=== PATIENT | female | born 1980 | race Caucasian/White ===

== ENCOUNTER 2019-01-31 03:17 | Inpatient (IN) | payer OTHER ==
[~2019-01-31] VITALS: Ht 172.7 cm; Wt 71.0 kg
--- NOTE | 2019-01-31 03:43 | NUR ---
PT BIB [facility] FOR C/O LOWER BACK PAIN THAT STARTED APPROX 2 WEEKS AGO. PT STATES THAT APPROX 3 WEEKS AGO SHE FELL OUT OF BED AND REPORTS THAT MIGHT BE THE CAUSE OF HER BACK PAIN. PT REPORTS 10/10 PAIN TO HER LOWER BACK. NO OBVIOUS INJURIES NOTED. PT IS A/O X4. RESP ARE E/U. NO ACUTE DISTRESS NOTED.
--- NOTE | 2019-01-31 04:43 | NUR ---
PT RESTING IN BED. PT STILL COMPLAINING OF 10/10 PAIN. PT INFORMED THAT DOCTOR WILL BE WITH HER SOON. PT VERBALIZES UNDERSTANIND. NO ACUTE DISTRESS NOTED.
[2019-01-31 06:47] LABS: BILIRUBIN TOTAL 0.4 mg/dL (0.20-1.00); CALCIUM 9.1 mg/dL (8.5-10.1); CARBON DIOXIDE 28.1 mmol/L (21-32); POTASSIUM SERUM 4.6 mmol/L (3.5-5.1); TOTAL PROTEIN, SERUM 7.9 g/dL (6.4-8.2)
[2019-01-31 06:56] LABS: BASOPHIL % 0 % (0-2); PLATELET COUNT 473 x10^3mcL (130-400); RED CELL DISTRIBUTION WIDTH 21.6 % (11.5-14.5)
[2019-01-31 06:59] LABS: rbc morphology (normal/abnorm) ABNORMAL (NORMAL)
--- NOTE | 2019-01-31 06:59 | NUR ---
REPORT RECEIVED FROM HONEY TELLO. I WILL ASSUME CARE OF PT.
--- NOTE | 2019-01-31 07:11 | NUR ---
REPORT RECEIVED FROM OMER MÉNDEZ TO ASSUME CARE OF PT.
[2019-01-31 07:15] LABS: ALBUMIN 2.6 g/dL (3.4-5.0); CREATININE SERUM 6.7 mg/dL (0.6-1.0)
[2019-01-31] MEDS ORDERED: NESINA6.25 MG PO (07:43)
[2019-01-31] MEDS ORDERED: GOOD SENSE ASPI81 M3 PO (07:44)
[2019-01-31] MEDS ORDERED: LIPITOR80 MG PO (07:44)
[2019-01-31] MEDS ORDERED: ZESTRIL40 MG PO (07:44)
[2019-01-31] MEDS ORDERED: CARVEDILOL25 M1 PO (07:45)
[2019-01-31] MEDS ORDERED: PROCARDIA XL90 MG PO (07:45)
[2019-01-31] MEDS ORDERED: FUROSEMIDE80 MG PO (07:45)
[2019-01-31] MEDS ORDERED: LEVAQUIN750 MG PO (07:46)
[2019-01-31] MEDS ORDERED: RENVELA800 M1 PO (07:46)
[2019-01-31] MEDS ORDERED: HYDROXYZINE HYD25 MG PO (07:47)
[2019-01-31] MEDS ORDERED: COLACE100 MG PO (07:47)
[2019-01-31] MEDS ORDERED: BIOTIN-D1 GM MC (07:48)
[2019-01-31] MEDS ORDERED: NEPHRO-VITE VITA1 EA PO (07:48)
[2019-01-31] MEDS ORDERED: PANTOPRAZOLE SO40 M1 PO (07:48)
--- NOTE | 2019-01-31 07:59 | NUR ---
REPORT GIVEN TO MARA PT WILL BE GOING TO ROOM 239 B
--- NOTE | 2019-01-31 08:19 | NUR ---
PATIENT ARRIVED TO THE UNIT AT THIS TIME, WILL COMPLETE ASSESSMENT AND CONTINUE TO MONITOR.
[2019-01-31 08:24] VITALS: BP 205/91
[2019-01-31 09:59] LABS: MAGNESIUM 2.3 mg/dL (1.8-2.4); PHOSPHOROUS 5.5 mg/dL (2.5-4.9)
[2019-01-31 10:02] LABS: CHOLESTEROL/HDL RATIO 2.2
[2019-01-31 10:45] LABS: T3 TOTAL 0.47 ng/mL
[2019-01-31 10:46] LABS: FREE T4 1.14 ng/dL (0.76-1.46); FREE THYROXINE INDEX 2.1 ug/dL (1.4-4.5); T4(THYROXINE) 5.7 ug/dL (4.7-13.3)
--- NOTE | 2019-01-31 11:04 | NUR ---
PATIENT FOUND TO STILL HAVE HIGH BP AFTER MORNING BP MEDICATIONS, PROVIDER AWARE AND ORDERED MEDICATION TO REDUCE BP, GIVEN AT THIS TIME, WILL RE-CHECK BP IN 30 MINUTES, THEN SEND PATIENT TO CT
--- NOTE | 2019-01-31 11:58 | NUR ---
BP RE-CHECKED AND FOUND TO BE 223/98, WILL CONTINUE TO MONITOR
--- NOTE | 2019-01-31 12:28 | NUR ---
PATIENT TAKEN DOWN TO CT AT THIS TIME VIA GURNEY.
--- NOTE | 2019-01-31 12:39 | NUR ---
I SPOKE TO DR. ACOSTA WHO ADVISED TO CALL [facility] FOR HD TODAY, HE WOULD LIKE [facility] TO CALL HIM FOR ORDERS, WILL MAKE CALL
--- NOTE | 2019-01-31 12:41 | NUR ---
I SPOKE TO [facility] AND ADVISED OF DR. DAVE ORDAZ.
--- NOTE | 2019-01-31 13:08 | NUR ---
BACK FROM CT AT THIS TIME, HD TO START AFTER SET UP.
--- NOTE | 2019-01-31 14:30 | NUR ---
PATIENT FOUND TO HAVE 02 SAT OF 85 PRIOR TO HD, STARTED ON 2 LITERS OF O2 VIA NAC, O2 SAT UP TO 87, O2 INCREASED TO 3 LITERS VIA NC, O2 SAT 91-97 AT THIS TIME, PROVIDER MADE AWARE, WILL CONTINUE TO MONITOR.
[2019-01-31 16:27] VITALS: BP 154/74
--- NOTE | 2019-01-31 18:03 | NUR ---
PATIENT TOLERATED HD TREATMENT WELL, 2L REMOVED PER HD NURSE, PATIENT BP IS LOWER NOW 154/74, STILL ON 2 LITERS O2 VIA NC FOR COMFORT, PATIENT DENIED SOB OR CHEST PAIN OR PRESSURE. PATIENT AND HER ADVISED OF CT RESULT AND PLAN TO CONSULT ID. WILL CONTINUE TO ASSESS PAIN, OXYGENATION, AND LOC.
--- NOTE | 2019-01-31 19:20 | NUR ---
REPORT GIVEN TO CABLE FERRY OPERATOR NURSE, CARE ENDORSED
--- NOTE | 2019-01-31 19:30 | NUR ---
PT RESTING IN BED AT THIS TIME. DENIES PAIN OR DISCOMFORT. BREATHING E/U ON 2L NC AT THIS TIME. PT A/O X4, CALM AND COOPERATIVE AT THIS TIME. PT R EYE REMOVED, L EYE LEGALLY BLIND. PT MS, DENIES CP, NV, DIZZINESS, OR PALPATATIONS. PALPABLE PULSES, NO EDEMA NOTED AT THIS TIME. PT TTHS HD, AV SHUNT TO L ARM. BRUIT AND THRILL PRESENT. ABD SOFT AND ROUND, DENIES PAIN TO PALPATIONS. WEAKNESS NOTED TO L SIDE. USES WHEELCHAIR AT HOME. IV TO RH, INTACT AND INFUSING. BED AT LOWEST POSITION. CALL LIGHT WITHIN REACH. WILL CONTINUE TO MONITOR.
[2019-01-31 21:02] VITALS: BP 164/82
--- NOTE | 2019-02-01 | NUR ---
PT RESTING IN BED AT THIS TIME. NO S/S OF PAIN OR DISTRESS NOTED. PT BREATHING E/U ON 2L NC. NO SIGNS OF ACUTE DISTRESS AT THIS TIME.
[2019-02-01 05:37] VITALS: BP 156/84
--- NOTE | 2019-02-01 06:37 | NUR ---
PT RESTING IN BED AT THIS TIME. DENIES PAIN OR DISCOMFORT. BREATHIGN E/U ON 2L NC. NO SIGNS OF ACUTE DISTRESS AT THIS TIME. BED AT LOWEST POSITION. CALL LIGHT WITHIN REACH. WILL CONTINUE TO MONITOR.
[2019-02-01 07:01] LABS: CALCIUM 9.4 mg/dL (8.5-10.1); CARBON DIOXIDE 26.6 mmol/L (21-32); PHOSPHOROUS 5.5 mg/dL (2.5-4.9)
--- NOTE | 2019-02-01 07:15 | NUR ---
AAO X4.C/O BACK PAIN AT 10/10 PAIN SCALE.WILL MEDICATE NEEDED.PT LEGALLY BLIND.LUNGS CLEAR.PT NON-TELE.IV TO TKO.L UPPER ARM WITH AV SHUNT WITH + BRUIT AND THRILL.PT DIALYSIS TTHS.WILL HAVE DIALYSIS TODAY REPORTED BY NOC RN.CALL LIGHT WITHIN REACH.INSTRUCTED TO CALL FOR ANY PAIN/DISCOMFORT.WILL CONTINUE TO MONITOR PT.
[2019-02-01 07:31] LABS: CREATININE SERUM 5.2 mg/dL (0.6-1.0)
[2019-02-01 07:42] LABS: PLATELET COUNT 502 x10^3mcL (130-400); RED CELL DISTRIBUTION WIDTH 22.3 % (11.5-14.5)
--- NOTE | 2019-02-01 07:47 | NUR ---
GAVE MORPHINE 2 MG ORDERED PRN FOR C/O BACK PAIN AT 10/10 PAIN SCALE.WILL CONTINUE TO MONITOR PT.
[2019-02-01 08:01] VITALS: BP 182/82
--- NOTE | 2019-02-01 08:17 | NUR ---
WENT TO RECHECK PT CLAIMS PAIN WENT DOWN TO 8/10 PAIN SCALE.
[2019-02-01 09:42] LABS: POTASSIUM SERUM 5.6 mmol/L (3.5-5.1)
--- NOTE | 2019-02-01 10:13 | NUR ---
GAVE ULTRAM ORDERED PRN FOR C/O BACK PAIN AT 10/10 PAIN SCALE.WILL CONTINUE TO MONITOR PT.
--- NOTE | 2019-02-01 10:25 | NUR ---
INFORMED ABOUT THE BLOOD CULTURE RESULT.
[2019-02-01 10:33] VITALS: BP 173/80
--- NOTE | 2019-02-01 11:13 | NUR ---
WENT TO RECHECK PAIN LEVEL CLAIMS TO FEEL A LOT BETTER.CLAIMS THAT ULTRAM WORKS BETTER THAN MORPHINE.
[2019-02-01 11:59] VITALS: BP 177/78
--- NOTE | 2019-02-01 12:00 | NUR ---
PAGE GATE ABOUT PT + MRSA OF THE NARES.
[2019-02-01 12:16] LABS: MONOCYTE 1 % (0-7); SEGMENTED NEUTROPHILS 87 % (37-75)
[2019-02-01 12:18] LABS: rbc morphology (normal/abnorm) NORMAL (NORMAL)
[2019-02-01 15:00] VITALS: Ht 172.7 cm; Wt 71.0 kg
[2019-02-01 16:35] VITALS: BP 155/70
[2019-02-01 17:03] LABS: microscopic required? YES; urine erythrocyte NEGATIVE (NEGATIVE)
[2019-02-01 17:30] LABS: AMPHETAMINE QUAL UR NONE DETECTED (See below)
--- NOTE | 2019-02-01 18:31 | NUR ---
NO SIGNIFICANT CHANGE NOTED.WILL ENDORSE TO NEXT SHIFT
--- NOTE | 2019-02-01 19:30 | NUR ---
PT RESTING IN BED AT THIS TIME. DENIES PAIN OR DISCOMFORT. BREATHING E/U ON 2L NC. A/O X4, CALM AND COOPERATIVE AT THIS TIME. PT MED/SURG, DENIES CP, NV, DIZZINESS, AND PALPATATIONS. PALPABLE PULSES, NO EDEMA NOTED AT THIS TIME. JASON SHUNT, BRUIT AND THRILL PALPABLE. ABD SOFT AND ROUND, DENIES PAIN TO PALPATION. GENERALIZED WEAKNESS, USES WHEELCHAIR AT HOME. IV TO RH, INTACT AND INFUSING. BED AT LOWEST POSITON. CALL LIGHT WITHIN REACH. WILL CONTINUE TO MONITOR.
--- NOTE | 2019-02-01 20:15 | NUR ---
PT RECIEVING HD AT THIS TIME. CALLED PHARMACY TO RESCHEDULE ANTIBIOTICS. PHARMACY STATED TO CALL AFTER HD IS COMPLETE.
[2019-02-01 21:10] VITALS: BP 133/69
[2019-02-02 05:14] VITALS: BP 167/78
[2019-02-02 06:37] VITALS: BP 155/70
[2019-02-02 06:44] LABS: CALCIUM 8.9 mg/dL (8.5-10.1); CARBON DIOXIDE 26.2 mmol/L (21-32); PHOSPHOROUS 4.4 mg/dL (2.5-4.9); POTASSIUM SERUM 4.9 mmol/L (3.5-5.1)
--- NOTE | 2019-02-02 06:45 | NUR ---
PT RESTING IN BED AT THIS TIME. DENIES PAIN OR DISCOMFRT. PT BP RECHECKED, 155/70 AT THIS TIME. PT RESTING COMFORTABLY IN BED. ALL NEEDS AND CONCERNS ADDRESSED THIS SHIFT. WILL ENDORSE TO DAY NURSE.
[2019-02-02 06:58] LABS: PLATELET COUNT 468 x10^3mcL (130-400); RED CELL DISTRIBUTION WIDTH 22.5 % (11.5-14.5)
[2019-02-02 06:59] LABS: BASOPHIL % 0 % (0-2)
[2019-02-02 07:01] LABS: CREATININE SERUM 5.6 mg/dL (0.6-1.0)
--- NOTE | 2019-02-02 07:10 | NUR ---
RECEIVED PT FROM NIGHT NURSE. PT IS LAYING DOWN IN BED WITH HOB RESTING WITH EYES CLOSED. PT LOOKS TO BE IN NO ACUTE DISTRESS AT THIS TIME. IV SITE PATENT WITH NO SIGNS OF ERYTHEMA OR SWELLING. RESPIRATIONS EVEN AND UNLABORED ON 2L NC. JASON FISTULA PRESENT. FAMILY MEMBER AT BEDSIDE. CONTACT PRECAUTIONS IMPLEMENTED. CALL LIGHT WITHIN REACH, BED IN LOWEST POSITION, WILL CONTINUE TO MONITOR.
[2019-02-02 08:58] VITALS: BP 175/83
[2019-02-02 09:48] LABS: rbc morphology (normal/abnorm) ABNORMAL (NORMAL)
[2019-02-02 12:11] VITALS: BP 176/76
--- NOTE | 2019-02-02 13:30 | NUR ---
WASTE WATER WORKER ANTONELLA AWARE OF HIGH BLOOD PRESSURE
--- NOTE | 2019-02-02 14:15 | NUR ---
PT IS LAYING DOWN IN BED WITH HOB UP RESTING. PT LOOKS TO BE IN NO ACUTE DISTRESS AT THIS TIME AND DENIES ANY PAIN. RESPIRATIONS EVEN AND UNLABORED ON ROOM AIR. IV SITE PATENT WITH NO SIGNS OF ERYTHEMA OR SWELLING WITH IV FLUIDS INFUSING. FAMILY MEMBER AT BEDSIDE. WILL CONITNUE TO MONITOR.
[2019-02-02 17:21] VITALS: BP 147/73
[2019-02-02] MEDS ORDERED: PLA75 PO (17:53)
--- NOTE | 2019-02-02 18:29 | NUR ---
PT IS LAYING DOWN IN BED WITH HOB UP. PT LOOKS TO BE IN NO ACUTE DISTRESS AT THIS TIME AND DENIES ANY PAIN. RESPIRATIONS EVEN AND UNLABORED ON ROOM AIR. IV SITE PATENT WITH NO SIGNS OF ERYTHEMA OR SWELLING WITH IV FLUIDS INFUSING. LEFT ARM FISTULA PRESENT BRUIT AND THRILL PRESENT. CALL LIGHT WITHIN REACH, BED IN LOWEST POSITION, WILL ENDORSE TO ONCOMING SHIFT.
[2019-02-02] MEDS ORDERED: SYNTHROID0.075 MG PO (19:20)
--- NOTE | 2019-02-02 19:36 | NUR ---
PATIENT EYEDROPS RELAYED TO AND DR NIÑO TO ORDER,AND ALSO PALVIX AND THYROID MEDS TO CONTINUE.WILL BRING EYEDROPS TO PHARMACY TO VERIFY.
--- NOTE | 2019-02-02 20:06 | NUR ---
SHIFT REASSESSMENT DONE.PATIENT ALERT AND OREINTED.FAMILY AT BEDSIDE,SUPPORTIVE OF CARE.STAYS AT NIGHT.PATIENT ON MRSA NARES TX.BREATHING EASY.WEAKNESS,GEN WEAKNESS,BACK PAIN.KPAD INPLACE.LUE AV FISTULA,HD ACCESS.HD IN AM.PAIN PILL WILL GIVE SCHEDULE.LIDOCAINE PATCH REPORTED.CALL LIGHT IN REACH.
[2019-02-02 20:34] VITALS: BP 117/64
--- NOTE | 2019-02-02 22:00 | NUR ---
PATIENT PM MEDS GIVEN,BLOOD SUGAR TONIGHT NORMAL.PARTNER AT BEDSIDE.
--- NOTE | 2019-02-03 02:27 | NUR ---
CAME BACK,IN GOOD SPIRIT.PATIENT WANTED SNACK AND GIVEN.FEATHER CUTTING MACHINE FEEDER HELPED HER TO BEDPAN,VOIDED,VERY SCANTY YELLOE URINE.HD IN AM.
--- NOTE | 2019-02-03 03:38 | NUR ---
AND PATIENT SAYS SHE PULLED IV BY ACCIDENT.WILL RESTART.
--- NOTE | 2019-02-03 04:15 | NUR ---
NEW IV SITE R WRIST 20 GUAGE WITH GOOD BLOOD RETURN.IVF TKO RESUMED.
--- NOTE | 2019-02-03 06:08 | NUR ---
AM LAB DONE.BLOOD SUGAR 76.ALL AM MEDS GIVEN WITH APPLE JUICE,SWALLOWS WELL.PATIENT IV SITE SECURED. AT BEDSIDE.CONTENT WITH CARE IS RECEIVING,CONTACT ISOLATION MAINTAINED.HD TODAY.
--- NOTE | 2019-02-03 07:15 | NUR ---
RECEIVED PT FROM NIGHT NURSE. PT IS LAYING DOWN IN BED RESTING WITH EYES CLOSED. PT LOOKS TO BE IN NO ACUTE DISTRESS AND DENIES ANY PAIN AT THIS TIME. RESPIRATIONS EVEN AND UNLABORED ON 2L NC. IV SITE PATENT WITH NO SIGNS OF ERYTHEMA OR SWELLING WITH IV FLUIDS INFUSING. FISTULA PRESENT TO LEFT FOREARM, BRUIT AND THRILL PRESENT, RESTRICTED EXTREMITY BAND PERSENT. CONTACT PRECAUTIONS IMPLEMENTED. CALL LIGHT WITHIN REACH, BED IN LOWEST POSITION, FAMILY MEMBER AT BEDSIDE. WILL CONTINUE TO MONITOR.
[2019-02-03 08:13] VITALS: BP 155/74
--- NOTE | 2019-02-03 10:15 | NUR ---
GAVE PT HIBICLENS BED BATH. PROVIDED PT WITH NEW GOWN. MADE PT COMFORTABLE IN BED. CALL LIGHT WITHIN REACH, FAMILY MEMBER AT BEDSIDE. WILL CONTINUE TO MONITOR.
[2019-02-03 10:47] LABS: BASOPHIL % 0 % (0-2); PLATELET COUNT 406 x10^3mcL (130-400)
[2019-02-03 11:06] LABS: CALCIUM 8.7 mg/dL (8.5-10.1); POTASSIUM SERUM 5.2 mmol/L (3.5-5.1)
[2019-02-03 11:08] LABS: CREATININE SERUM 7.3 mg/dL (0.6-1.0)
[2019-02-03 12:04] VITALS: BP 158/80
--- NOTE | 2019-02-03 13:42 | NUR ---
DIALYSIS NURSE ARRIVED AND IS AT BEDSIDE. PT LOOKS TO BE IN NO ACUTE DISTRESS AT THIS TIME. FAMILY MEMBER AT BEDSIDE. WILL CONTINUE TO MONITOR.
[2019-02-03 16:42] VITALS: BP 142/43
--- NOTE | 2019-02-03 16:46 | NUR ---
RECEIVED CALL FROM LAB, PT'S BLOOD CULTURE POSITIVE FOR MRSA. BUTTONHOLER IBAN AWARE
--- NOTE | 2019-02-03 17:20 | NUR ---
DIALYSIS COMPLETE. PT LOOKS TO BE IN NO ACUTE DSITRESS AT THIS TIME. PT IS LAYING DOWN IN BED RESTING. WILL CONTINUE TO MONITOR.
--- NOTE | 2019-02-03 17:40 | NUR ---
ATTEMPTED TO ASSIST PT TO EAT, SET UP DINNER TRAY. PT STATES THAT DOES NOT WANT TO EAT AT THIS TIME AND WOULD LIKE TO WAIT FOR FAMILY MEMBER. MADE PT COMFORTABLE IN BED. WILL CONTINUE TO MONITOR.
--- NOTE | 2019-02-03 18:15 | NUR ---
PT IS LAYING DOWN IN BED WITH HOB UP RESTING. PT LOOKS TO BE IN NO ACUTE DISTRESS AT THIS TIME AND STATES PAIN TOLERABLE AT THIS TIME. IV SITE PATENT WITH NO SIGNS OF ERYTHEMA OR SWELLING WITH IV FLUIDS INFUSING. RESPIRATIONS EVEN AND UNLABORED ON 2L NC. FISTULA PRESENT TO LEFT FOREARM NO SIGNS OF BLEEDING, BRUIT AND THRILL PRESENT. CALL LIGHT WITHIN REACH, BED IN LOWEST POSITION. WILL ENDORSE TO ONCOMING SHIFT.
--- NOTE | 2019-02-03 19:05 | NUR ---
CARE ASSUMED FROM OUTGOING RN. PT RESTING COMFORTABLY IN BED. NO ACUTE DISTRESS NOTED. EVEN AND UNLABORED RESPIRATIONS ON RA. MEDSURG PT. IVL INTACT. FISTULA TO LFA FISTULA, BRUIT AND THRILL PRESENT, HD TODAY WITH 2L OUTPUT. DRESSING CDI. KPAD IN PLACE TO PT BACK, C/O BACK PAIN 8/10 AND ABD CRAMPING 5/10, WILL MEDICATE PER EMAR. CONTACT ISOLATION IN PLACE. BED IN LOWEST POSITION. SIDE RAILS UPX2. CALL LIGHT WITHIN REACH. WILL CONTINUE TO MONITOR.
[2019-02-03 21:31] VITALS: BP 160/72
--- NOTE | 2019-02-04 00:30 | NUR ---
PT RESTING COMFORTABLY IN BED. FAMILY AT BEDSIDE. NO ACUTE DISTRESS NOTED. EVEN AND UNLABORED RESPIRATIONS ON 2LNC. NO C/O SOB. IVL INTACT. CONTACT PRECAUTION IN PLACE. BED IN LOWEST POSITION. SIDE RAILS UPX2. CALL LIGHT WITHIN REACH. WILL CONTINUE TO MONITOR.
[2019-02-04 04:29] VITALS: BP 165/77
--- NOTE | 2019-02-04 06:16 | NUR ---
PT SLEPT IN INTERVALS THROUGHOUT THE SHIFT. FAMILY AT BEDSIDE. ALL NEEDS TENDED TO AND MET. ALL SCHEDULED MEDICATIONS GIVEN. C/O CONSTIPATION MEDICATED PER EMAR, ABLE TO HAVE FORMED BM THIS AM. C/O BACK PAIN MEDICATED PER EMAR, KPAD IN PLACE. EVEN AND UNLABORED RESPIRATIONS ON RA/2LNC PRN. IVL PATENT AND INTACT. LFA FISTULA INTACT, DRESSING CDI. BED IN LOWEST POSITION. CONTACT ISOLATIN IN PLACE. SIDE RAILS UPX2. CALL LIGHT WITHIN REACH. WILL ENDORSE TO ONCOMING SHIFT.
--- NOTE | 2019-02-04 06:42 | NUR ---
BP: 165/77 RECHECKED: 178/87. MEDICATED PER EMAR. NO C/O HEADACHE OR PAIN AT THIS TIME. WILL ENDORSET ONCOMING SHIFT.
[2019-02-04 06:46] LABS: PLATELET COUNT 392 x10^3mcL (130-400)
[2019-02-04 06:47] LABS: CALCIUM 9.2 mg/dL (8.5-10.1); CARBON DIOXIDE 25.8 mmol/L (21-32); POTASSIUM SERUM 4.4 mmol/L (3.5-5.1)
[2019-02-04 06:51] LABS: CREATININE SERUM 6.2 mg/dL (0.6-1.0)
--- NOTE | 2019-02-04 07:15 | NUR ---
RECIEVED PT FROM NIGHT NURSE. PT IS LAYING DOWN IN BED WITH HOB UP RESTING. PT LOOKS TO BE IN NO ACUTE DISTRESS AND STATES PAIN IS TOLERABLE AT THIS TIME. RESPIRATIONS EVEN AND UNLABORED ON ROOM AIR. PT DENIES ANY SOB AND NC AT BEDSIDE, PT STATES THAT WHEN FEELING SOB, PT WILL PUT ON NC NEEDED. FISTULA TO LEFT FOREARM, BRUIT AND THRILL PRESENT. IV SITE PATENT WITH NO SIGNS OF ERYTHEMA OR SWELLING. FAMILY MEMBER AT BEDISDE. CALL LIGHT WITHIN REACH. WILL CONTINUE TO MONITOR.
[2019-02-04 07:30] LABS: BASOPHIL % 0 % (0-2); RED CELL DISTRIBUTION WIDTH 22.8 % (11.5-14.5)
[2019-02-04 08:57] VITALS: BP 186/85
--- NOTE | 2019-02-04 12:45 | NUR ---
RECHECKED PT BLOOD SUGAR AND IS 75. PT LAYING DOWN IN BED. INSTRUCTED PT TO EAT TO PREVENT BLOOD SUGAR DECREASING. PT STATED THAT DIDNT EAT BREAKFAST THIS MORNING BECAUSE FEELING TIRED. PT NOW EATING LUNCH AT THIS TIME. PT LOOKS TO BE IN NO ACUTE DISTRESS AT THIS TIME. CALL LIGHT WITHIN REACH. WILL CONTINUE TO MONITOR.
[2019-02-04 12:47] VITALS: BP 176/78
--- NOTE | 2019-02-04 13:09 | NUR ---
PT COMPLAINING OF PAIN 11/16, BLOOD PRESSURE HIGH AT THIS TIME. MEDICATED FOR PAIN AND WILL RECHECK BLOOD PRESSURE
--- NOTE | 2019-02-04 13:55 | NUR ---
RECHECKED PT BLOOD PRESSURE AFTER PAIN MEDICATION GIVEN AND IS 164/78, WILL MEDICATE ACCORDING TO EMAR.
[2019-02-04 15:05] VITALS: BP 169/80
--- NOTE | 2019-02-04 15:05 | NUR ---
RECEIVED PT BLOOD PRESSURE AFTER GIVEN PRN BLOOD PRESSURE MEDICATION. BLOOD PRESSURE AT THIS TIME IS 169/80, MAP: 136, HR: 63. NOTIFIED ELECTRODE TURNER AND FINISHER ANTONELLA TO ORDERED ONE TIME DOSE OF MORPHINE 2MG IVP, WILL CARRY OUT ORDERED.
[2019-02-04 16:02] VITALS: BP 162/85
--- NOTE | 2019-02-04 18:53 | NUR ---
PT IS LAYING DOWN IN BED WITH HOB UP RESTING. PT LOOKS TO BE IN NO ACUTE DISTRESS AT THIS TIME AND DENIES ANY PAIN. RESPIRATIONS EVEN AND UNALBORED ON 2L NC. IV SITE PATENT WITH NO SIGNS OF ERYTHEMA OR SWELLING. FISTULA TO LEFT FOREARM, BRUIT AND THRILL PRESENT. FAMILY MEMBER AT BEDSIDE. CALL LIGHT WITHIN REACH, WILL ENDORSE TO ONCOMING SHIFT.
--- NOTE | 2019-02-04 19:20 | NUR ---
RECEIVED REPORT FROM MAYUR MÉNDEZ. PT IS AAOX4 AND DENIES HEADACHE OR DIZZINESS AT THIS TIME. PT RIGHT EYE REMOVED AND LEFT EYE IS BLIND. PT IS MED-SURG AND DENIES CHEST PAIN OR PRESSURE AT THIS TIME. PT PULSES PALPABLE AND CAP REFILL <3 SEC. PT LUNG SOUNDS CTA ON RA/2LPM NC. PT DENIES SOB OR RESPIRATORY DISTRESS AT THIS TIME. PT ABD SOFT AND NONDISTENDED. PT BOWEL SOUNDS ACTIVE X4. PT DENIES N/V/D AT THIS TIME. PT VOIDS AND IS OLIGURIC. PT HAS HD //. LAST HD 02/03 OUTPUT WAS 2L. PT HAS GENERALIZED WEAKNESS ON THE LEFT SIDE. PT IV PATENT, INTACT, AND SALINE-LOCKED AT THIS TIME. AT BEDSIDE. CALL LIGHT WITHIN REACH. BED IN LOWEST POSITION. SIDE RAILS X2 UP. WILL CONTINUE TO MONITOR.
[2019-02-04 20:54] VITALS: BP 114/72
--- NOTE | 2019-02-05 00:03 | NUR ---
PT SLEEPING, BUT EASILY AROUSABLE. PER APR, ADMINISTERED SCHEDULED PERCOCET FOR BACK PAIN. REPOSITIONED PT IN BED TO LAY ON RIGHT SIDE. CALL LIGHT WITHIN REACH. BED IN LOWEST POSITION. SIDE RAILS X2 UP. WILL CONTINUE TO MONITOR.
--- NOTE | 2019-02-05 06:11 | NUR ---
PT SLEPT FOR MOST OF THE NIGHT. NO ACUTE DISTRESS NOTED DURING THE SHIFT. PT COMPLIED WITH NURSING CARE THROUGHOUT THE SHIFT. COMFORT AND SAFETY MEASURES MAINTAINED. ALL QUESTIONS AND CONCERNS ADDRESSED. WILL ENDORSE CARE TO DAY SHIFT NURSE. WILL CONTINUE TO MONITOR.
--- NOTE | 2019-02-05 07:19 | NUR ---
ENDORSED CARE TO SUNSHINE MÉNDEZ. ALL QUESTIONS AND CONCERNS ADDRESSED.
[2019-02-05 08:08] LABS: CALCIUM 9.5 mg/dL (8.5-10.1); CARBON DIOXIDE 24.1 mmol/L (21-32); POTASSIUM SERUM 4.8 mmol/L (3.5-5.1)
[2019-02-05 08:11] VITALS: BP 119/59
[2019-02-05 08:12] LABS: CREATININE SERUM 7.6 mg/dL (0.6-1.0)
[2019-02-05 08:50] LABS: PLATELET COUNT 372 x10^3mcL (130-400); RED CELL DISTRIBUTION WIDTH 21.9 % (11.5-14.5)
[2019-02-05 08:51] LABS: BASOPHIL % 0.1 % (0-2)
--- NOTE | 2019-02-05 10:12 | NUR ---
AT 0720 - RECEIVED PATIENT FROM NIGHT NURSE. SLEEPING. RESPIRATIONS REGULAR. PT'S AT BEDSIDE. ON CONTACT ISOLATION FOR MRSA NARES. AT 0930 - PATIENT IS AWAKE, ALERT AND ORIENTED X 4. HAS EATEN BREAKFAST. NO COMPLAINTS AT THIS TIME. ALL SCHEDULED MEDS ADMINSITERED PRESCRIBED.
--- NOTE | 2019-02-05 15:47 | NUR ---
AT 1200 - PATIENT GIVEN CHLORHEXIDINE BODY BATH. BLOOD GLUCOSE 118. APPEARS COMFORTABLE AT THIS TIME. AT 1325 - PATIENT C/O INDIGESTION. CONTACTED FAMILY PRACTICE PHYSICIAN KHURRAM. AWAITING ORDER INPUT. AT 1420 - MEDICATED WITH IV PROTONIX PER EMAR.
[2019-02-05 17:59] VITALS: BP 120/60
--- NOTE | 2019-02-05 19:03 | NUR ---
VSS/ AFEBRILE. PAIN APPEARS UNDER CONTROL WITH CURRENT MEDICATIONS: SCHEDULED PERCOCET, FLEXERIL AND LIDOCAINE PATCH. NO ADDITIONAL PAIN MED REQUIRED THIS SHIFT. PATIENT WAS ABLE TO EAT OME FOOD FOR DINNER. REMAINS AT BEDSIDE AND ASSISTS WITH CARE. WILL ENDORSE CARE TO NIGHT NURSE.
--- NOTE | 2019-02-05 20:00 | NUR ---
RECEIVED PT IN BED DROWSY BUT EASILY AROUSABLE. PT IS ORIENTED X4. AT BEDSIDE. PT IS LEGALLY BLIND TO LEFT EYE, RIGHT EYE REMOVED. NO TELE MONITOR NEEDED. DENIES CHEST PAIN. LUNG SOUNDS CLEAR. BREATHING EASILY ON 2L O2 N/C. BS ACTIVE IN ALL FOUR QUADS. NO ABD PAIN NOTED. OLIGURIC, PT SCHEDULED TO HAVE HD TOMORROW. LUE WITH FISTULA +BRUIT/THRILL. GENERALIZED WEAKNESS NOTED. IV HL TO RIGHT HAND. SHIFT ASSESSMENT COMPLETED. PT IS IN CONTACT ISOLATION FOR MRSA NARES, DAY 4 OF 5 TREATMENT ONGOING. ISOLATION PRECAUTIONS ENFORCED. CALL LIGHT WITHIN REACH. BED IS IN LOWEST POSITION. WILL CONTINUE TO MONITOR CLOSELY.
--- NOTE | 2019-02-05 21:00 | NUR ---
FSBS IS 117. SANDWICH AND SNACK GIVEN AT THIS TIME. ALL NEEDS TENDED TO. WILL CONTINUE TO MONITOR CLOSELY.
[2019-02-05 21:43] VITALS: BP 115/61
--- NOTE | 2019-02-05 22:15 | NUR ---
PT RESTING IN BED IN NO DISTRESS. AT BEDSIDE. CALL LIGHT WITHIN REACH. WILL CONTINUE TO MONITOR CLOSELY.
--- NOTE | 2019-02-06 03:45 | NUR ---
CLEANED AND CHANGED PT AT THIS TIME, BACK HAS RED RASH WITH SMALL RAISED BUMPS WHICH WAS THERE AT START OF SHIFT FROM PREVIOUS SHIFT, HOWEVER PT STATES IT IS ITCHY NOW. DR NOTIFIED AND ORDERED BENADRYL PO, GIVEN AT THIS TIME. PT C/O ACID REFLUX, PROTONIX X1 IVP GIVEN ORDERED. IV LEAKING, REMOVED AT THIS TIME AND PLACED A NEW IV TO RFA. ALL NEEDS TENDED TO. WILL CONTINUE TO MONITOR CLOSELY.
[2019-02-06 05:50] VITALS: BP 134/64
--- NOTE | 2019-02-06 06:12 | NUR ---
FSBS IS 89. ALL DUE MEDS GIVEN ORDERED. AT BEDSIDE. CALL LIGHT WITHIN REACH. BED IS IN LOWEST POSITION. WILL CONTINUE TO MONITOR CLOSELY.
[2019-02-06 06:22] LABS: BASOPHIL % 0.2 % (0-2); PLATELET COUNT 379 x10^3mcL (130-400)
[2019-02-06 06:50] LABS: CALCIUM 9.1 mg/dL (8.5-10.1); CARBON DIOXIDE 24.4 mmol/L (21-32); POTASSIUM SERUM 5.1 mmol/L (3.5-5.1)
[2019-02-06 07:02] LABS: CREATININE SERUM 8.5 mg/dL (0.6-1.0)
[2019-02-06 07:15] LABS: RED CELL DISTRIBUTION WIDTH 22.2 % (11.5-14.5)
--- NOTE | 2019-02-06 07:30 | NUR ---
PATIENT IS A&OX4, LEGALLY BLIND, FOLLOWS COMMANDS AND COOPERATES WELL. LUNG SOUNDS ARE CTA BILATERALLY, ON RA, O2 SAT 97%. DENIES ANY CHEST PAIN AT THIS TIME. DENIES ANY PAIN. NORMAOCTIVE BSX4, AV FISTULA WITH BRUIT AND THRILL PRESENT, PLAN FOR HD TODAY. WILL CONTINUE TO MONITOR.
[2019-02-06 07:59] LABS: ovalocyte/elliptocyte 1+; rbc morphology (normal/abnorm) ABNORMAL (NORMAL)
[2019-02-06 08:14] VITALS: BP 139/75
--- NOTE | 2019-02-06 13:45 | NUR ---
PATIENT HAS FINISHED HEMODIALYSIS. BP WAS STABLE. PATIENT DENIED ANY DISCOMFORT OR PAIN AT THIS TIME. PATIENT ONLY STATED HEARTBURN FROM EATING, WHICH WAS MANAGED WITH WATER AND DIET SPRITE. 3L OUTPUT FROM HD. WILL CONTINUE TO MONITOR.
[2019-02-06 16:48] VITALS: BP 141/72
--- NOTE | 2019-02-06 18:46 | NUR ---
PATIENT IS CURRENTLY RESTING WITH PRESENT. PATIENT DENIES ANY PAIN, ONLY ITCHING. WILL GIVE BENADRYL. ALL QUESTIONS AND CONCERNS HAVE BEEN ADDRESSED. WILL CONTINUE TO MONITOR.
--- NOTE | 2019-02-06 19:30 | NUR ---
PT RECIEVED FROM DAY NURSE. PT RESTING IN BED AT THIS TIME. DENIES PAIN OR DISCOMFORT. A/OX4, PT BLIND IN THE L EYE R EYE REMOVED. PT MED/SURG, DENIES CP, NV, DIZZINESS, AND PALPATATIONS. PALPABLE PULSES, NO EDEMA NOTED AT THIS TIME. BREATHING E/U ON RA AT THIS TIME. ABD SOFT AND ROUND, DENIES PAIN TO PALPATION. HD PT, //SAT. JASON SHUNT. IV TO RFA, INTACT AT THIS TIME. SMALL RED BUMPS NOTED TO UPPER BODY AND BACK, MD AWARE. BED AT LOWEST POSITION. CALL LIGHT WITHIN REACH. WILL CONTINUE TO MONITOR.
[2019-02-06 21:03] VITALS: BP 132/69
--- NOTE | 2019-02-07 | NUR ---
PT RESTING IN BED AT THIS TIME. DENIES PAIN OR DISCOMFORT. BREATHING E/U ON RA. NO SIGNS OF ACUTE DISTRESS AT THIS TIME. BED AT LOWEST POSITION. CALL LIGHT WITHIN REACH. WILL CONTINUE TO MONITOR.
[2019-02-07 05:44] VITALS: BP 175/68
--- NOTE | 2019-02-07 06:37 | NUR ---
PT RESTING IN BD AT THIS TIME. REFUSING IV ACCESS. PT BP 175/68, PRN CLONODINE GIVEN. PT DENIES PAIN OR DISCOMFORT. NO SIGNS OF ACUTE DISTRESS NOTED AT THIS TIME. WILL ENDORSE TO DAY NURSE.
--- NOTE | 2019-02-07 06:52 | NUR ---
PT BP NOW 155/68. WILL ENDORSE.
--- NOTE | 2019-02-07 07:10 | NUR ---
RECEIVED PATIENT AWAKE/ALERT IN BED, NO DISTRESS NOTED, NO IV SITE REFUSED. FAMILY MEMBER AT BEDSIDE. POC DISCUSS. PATIENT WANT TO GO HOME TODAY, INFORM PATIENT WILL WAITING FOR DOCTOR DURING ROUND TO FIND OUT.
--- NOTE | 2019-02-07 08:30 | NUR ---
YARELIS GARCIA SEEN PATIENT AND DISCUSS POC, RESIN SHAVER TOLD PATIENT WILL WAIT FOR DR. DEVRIES CLEARANCE FOR D/C.
[2019-02-07 08:39] VITALS: BP 177/82
--- NOTE | 2019-02-07 11:20 | NUR ---
PATIENT IN BED AWAKE/ALERT IN BED NO COMPLAIN. ALL DUE MEDS ADMINISTERED PATIENT TOLERATED WELL. REFUSED LIDOCAINE PATCH STATED CAUSE RASHES, NEED MET. FAMILY MEMBER REMAIN AT BEDSIDE.
--- NOTE | 2019-02-07 11:30 | NUR ---
GAVE REPORT TO JOSE MÉNDEZ.
--- NOTE | 2019-02-07 12:41 | NUR ---
PT SITTING UP IN BED A/A. BREATHING EQUAL/UNLABORED ON RA. C/O BACK PAIN, PAIN MED GIVEN. NO IV ACCESS, PT REFUSED. BE IN LOW POSITION, CALL LIGHT IN REACH, SAFETY PRECAUTIONS IN PLACE, FAMILY AT BED SIDE. WILL CONTINUE TO MONITOR
[2019-02-07 13:36] VITALS: BP 140/69
[2019-02-07] MEDS ORDERED: PERCOCET1 TAB PO (13:59)
--- NOTE | 2019-02-07 14:59 | NUR ---
PT DC'D HOME. PT A/A, ORIENTED X 4, BREATHING EQUAL/UNLABORED, C/O MILD BACK PAIN. PT HAD NO IV ACCESS. DISCHARGE INSTRUCTIONS/ EDUCATION, F/U APPT, DIALYSIS APPTS, AND NEW RX DISCUSSED WITH PT AND FRIEND, BOTH VERBALIZED UNDERSTANDING. PT BROUGHT DOWN TO LOBBY VIA W/C, ACCOMPANIED BY RN AND FRIEND. ALL BELONGINGS WITH PT
== END 2019-02-07 15:00 | disposition home or self-care (01) | DRG 344 ==
LOC: ED 03:17 → MU 07:41 → EDBEDREQ 07:43 → MU 08:11
PROVIDERS: Emergency Medicine; ADMIT General Practice
PROC: 5A1D70Z Performance of Urinary Filtration, Intermittent, Less than 6 Hours Per Day (ICD-10-PCS; principal; 2019-01-31)
PROC: 5A1D70Z Performance of Urinary Filtration, Intermittent, Less than 6 Hours Per Day (ICD-10-PCS; 2019-02-01)
PROC: 5A1D70Z Performance of Urinary Filtration, Intermittent, Less than 6 Hours Per Day (ICD-10-PCS; 2019-02-03)
PROC: 5A1D70Z Performance of Urinary Filtration, Intermittent, Less than 6 Hours Per Day (ICD-10-PCS; 2019-02-06)
DX: M46.25 Osteomyelitis of vertebra, thoracolumbar region (principal); G06.1 Intraspinal abscess and granuloma; E44.0 Moderate protein-calorie malnutrition; R78.81 Bacteremia; E11.22 Type 2 diabetes mellitus with diabetic chronic kidney disease; I12.0 Hypertensive chronic kidney disease with stage 5 chronic kidney disease or end stage renal disease; E83.39 Other disorders of phosphorus metabolism; E87.5 Hyperkalemia; N18.6 End stage renal disease; Z99.2 Dependence on renal dialysis; Z79.84 Long term (current) use of oral hypoglycemic drugs; I25.10 Atherosclerotic heart disease of native coronary artery without angina pectoris; M54.9 Dorsalgia, unspecified; G89.29 Other chronic pain; I16.0 Hypertensive urgency; H54.8 Legal blindness, as defined in USA; E78.00 Pure hypercholesterolemia, unspecified; I69.354 Hemiplegia and hemiparesis following cerebral infarction affecting left non-dominant side; D64.9 Anemia, unspecified
CPT/HCPCS: 82962; 83880; 84439; C9113; G0378; J0692; J0885-EC; J1100; J1580; J2270; J2405; J3010; J3370; J3490; J7030; Q0092; Q0163; Q9967

== ENCOUNTER 2019-04-15 00:22 | Emergency (ER) | payer OTHER ==
[~2019-04-15] VITALS: Ht 167.6 cm; Wt 1.9 kg
[~2019-04-15 00:22] MED LIST: BIOTIN-D1 GM MC; CARVEDILOL25 M1 PO; COLACE100 MG PO; FUROSEMIDE80 MG PO; GOOD SENSE ASPI81 M3 PO; HYDROXYZINE HYD25 MG PO; LEVAQUIN750 MG PO; LIPITOR80 MG PO; NEPHRO-VITE VITA1 EA PO; NESINA6.25 MG PO; PANTOPRAZOLE SO40 M1 PO; PERCOCET1 TAB PO; PLA75 PO; PROCARDIA XL90 MG PO; RENVELA800 M1 PO; SYNTHROID0.075 MG PO; ZESTRIL40 MG PO
[2019-04-15 00:31] VITALS: Ht 167.6 cm; Wt 1.9 kg
[2019-04-15 01:40] LABS: PLATELET COUNT 367 x10^3mcL (130-400)
[2019-04-15 01:41] LABS: BASOPHIL % 0 % (0-2); RED CELL DISTRIBUTION WIDTH 20.6 % (11.5-14.5)
[2019-04-15 03:01] LABS: CALCIUM 9.5 mg/dL (8.5-10.1); CREATININE SERUM 3.5 mg/dL (0.6-1.0); POTASSIUM SERUM 3.7 mmol/L (3.5-5.1)
[2019-04-15 03:06] LABS: BILIRUBIN TOTAL 0.54 mg/dL (0.20-1.00)
[2019-04-15 03:08] LABS: ALBUMIN 3.3 g/dL (3.4-5.0)
[2019-04-15 03:30] LABS: acanthocyte (spur cell) 1+; rbc morphology (normal/abnorm) ABNORMAL (NORMAL)
[2019-04-15 04:40] VITALS: BP 180/95
== END 2019-04-15 04:35 | disposition home or self-care (01) ==
LOC: ED 00:22
PROVIDERS: Emergency Medicine
DX: R10.84 Generalized abdominal pain (principal); I12.0 Hypertensive chronic kidney disease with stage 5 chronic kidney disease or end stage renal disease; E11.22 Type 2 diabetes mellitus with diabetic chronic kidney disease; N18.6 End stage renal disease; Z99.2 Dependence on renal dialysis
CPT/HCPCS: J2270; J2405

== ENCOUNTER 2019-05-23 13:01 | Inpatient (IN) | payer OTHER, SELFPAY ==
[~2019-05-23] VITALS: Ht 160 cm; Wt 69.1 kg
[2019-05-23 13:11] VITALS: Ht 160 cm; Wt 69.1 kg
[2019-05-23 14:18] LABS: BASOPHIL % 0.1 % (0-2); PLATELET COUNT 350 x10^3mcL (130-400)
[2019-05-23 14:19] LABS: RED CELL DISTRIBUTION WIDTH 22.6 % (11.5-14.5)
[2019-05-23 15:05] LABS: ALKALINE PHOSPHATASE 61 U/L (46-116); ALT/SGPT 28 U/L (14-59); AST/SGOT 36 U/L (15-37); BILIRUBIN TOTAL 0.6 mg/dL (0.20-1.00); CALCIUM 10.1 mg/dL (8.5-10.1); CARBON DIOXIDE 23.6 mmol/L (21-32); CHLORIDE SERUM 99 mmol/L (98-107); GFR1 7 mL/min; GLUCOSE SERUM 86 mg/dL (74-106); POTASSIUM SERUM 5.2 mmol/L (3.5-5.1); SODIUM SERUM 140 mmol/L (136-145)
[2019-05-23 15:06] LABS: CHOLESTEROL 112 mg/dL (<200); TOTAL PROTEIN, SERUM 8.3 g/dL (6.4-8.2)
[2019-05-23 15:45] LABS: C REACTIVE PROTEIN 4.9 mg/dL (<=0.9)
[2019-05-23 16:21] LABS: CHOLESTEROL/HDL RATIO 2.9
[2019-05-23] MEDS ORDERED: DULOXETINE HYDR20 MG PO (16:29)
[2019-05-23] MEDS ORDERED: NEPHRO-VITE RX1 TAB (16:29)
[2019-05-23] MEDS ORDERED: BACLOFEN5 MG PO (16:30)
[2019-05-23 18:07] VITALS: BP 153/84
[2019-05-23 21:00] VITALS: BP 114/57
[2019-05-24 06:43] LABS: PLATELET COUNT 326 x10^3mcL (130-400)
[2019-05-24 06:45] LABS: BASOPHIL % 0 % (0-2); RED CELL DISTRIBUTION WIDTH 23.5 % (11.5-14.5)
[2019-05-24 07:02] VITALS: BP 175/73
[2019-05-24 07:17] LABS: CALCIUM 9.1 mg/dL (8.5-10.1); CARBON DIOXIDE 29.8 mmol/L (21-32); POTASSIUM SERUM 3.8 mmol/L (3.5-5.1)
[2019-05-24 07:24] LABS: CREATININE SERUM 4.6 mg/dL (0.6-1.0)
[2019-05-24 07:41] LABS: ovalocyte/elliptocyte 1+; rbc morphology (normal/abnorm) ABNORMAL (NORMAL); schistocyte (helmet cell) 1+; target cell (codocyte) 1+
[2019-05-24 08:41] VITALS: BP 191/86
[2019-05-24 12:20] VITALS: BP 189/91
[2019-05-24 18:02] VITALS: BP 159/78
[2019-05-24 20:43] VITALS: BP 159/75
[2019-05-25 05:21] VITALS: BP 222/97
[2019-05-25 07:06] LABS: CARBON DIOXIDE 25.4 mmol/L (21-32); MAGNESIUM 2.1 mg/dL (1.8-2.4); PHOSPHOROUS 5.2 mg/dL (2.5-4.9); POTASSIUM SERUM 3.8 mmol/L (3.5-5.1)
[2019-05-25 07:17] LABS: CREATININE SERUM 4.1 mg/dL (0.6-1.0)
[2019-05-25 07:38] LABS: BASOPHIL % 0.1 % (0-2); PLATELET COUNT 378 x10^3mcL (130-400)
[2019-05-25 07:41] LABS: RED CELL DISTRIBUTION WIDTH 23.2 % (11.5-14.5)
[2019-05-25 08:08] VITALS: BP 150/93
[2019-05-25 12:13] VITALS: BP 168/78
[2019-05-25 13:20] VITALS: BP 122/70
[2019-05-25 16:06] VITALS: BP 142/67
[2019-05-25 20:21] VITALS: BP 127/57
[2019-05-26 06:48] VITALS: BP 202/96
[2019-05-26 07:30] LABS: CALCIUM 10.3 mg/dL (8.5-10.1); CARBON DIOXIDE 25.5 mmol/L (21-32); POTASSIUM SERUM 4.4 mmol/L (3.5-5.1)
[2019-05-26 07:32] LABS: CREATININE SERUM 4.9 mg/dL (0.6-1.0)
[2019-05-26 07:45] VITALS: BP 190/85
[2019-05-26 07:58] LABS: BASOPHIL % 0 % (0-2); PLATELET COUNT 412 x10^3mcL (130-400); RED CELL DISTRIBUTION WIDTH 24.2 % (11.5-14.5)
[2019-05-26 12:06] VITALS: BP 146/72
[2019-05-26 17:06] VITALS: BP 145/71
[2019-05-26 19:15] VITALS: BP 162/83
[2019-05-27 04:30] VITALS: BP 212/90
[2019-05-27 06:23] VITALS: BP 180/79
[2019-05-27 07:03] LABS: BASOPHIL % 0.1 % (0-2); PLATELET COUNT 372 x10^3mcL (130-400)
[2019-05-27 07:15] VITALS: BP 192/82
[2019-05-27 07:19] LABS: CALCIUM 9.6 mg/dL (8.5-10.1); CARBON DIOXIDE 28.6 mmol/L (21-32); CREATININE SERUM 3.7 mg/dL (0.6-1.0); POTASSIUM SERUM 3.4 mmol/L (3.5-5.1)
[2019-05-27 08:33] LABS: RED CELL DISTRIBUTION WIDTH 24.1 % (11.5-14.5)
[2019-05-27 11:40] VITALS: BP 188/77
[2019-05-27 11:49] LABS: rbc morphology (normal/abnorm) ABNORMAL (NORMAL)
[2019-05-27 16:18] VITALS: BP 144/67
[2019-05-27 20:59] VITALS: BP 146/63
[2019-05-28 05:30] VITALS: BP 178/83
[2019-05-28 07:06] LABS: CALCIUM 9.6 mg/dL (8.5-10.1); CARBON DIOXIDE 29.8 mmol/L (21-32); POTASSIUM SERUM 3.5 mmol/L (3.5-5.1)
[2019-05-28 07:21] LABS: CREATININE SERUM 4.8 mg/dL (0.6-1.0)
[2019-05-28 07:35] LABS: BASOPHIL % 0.1 % (0-2); PLATELET COUNT 333 x10^3mcL (130-400)
[2019-05-28 07:38] LABS: RED CELL DISTRIBUTION WIDTH 23.8 % (11.5-14.5)
[2019-05-28 08:06] VITALS: BP 170/80
[2019-05-28 12:09] VITALS: BP 175/78
[2019-05-28 12:14] VITALS: BP 175/78
[2019-05-28 14:31] LABS: rbc morphology (normal/abnorm) ABNORMAL (NORMAL)
== END 2019-05-28 14:40 | disposition home health service (06) | DRG 52 ==
LOC: ED 13:01 → DU 15:27
PROVIDERS: Emergency Medicine; Internal Medicine Nephrology; ADMIT Student in an Organized Health Care Education/Training Program
PROC: 5A1D70Z Performance of Urinary Filtration, Intermittent, Less than 6 Hours Per Day (ICD-10-PCS; principal; 2019-05-23)
PROC: 5A1D70Z Performance of Urinary Filtration, Intermittent, Less than 6 Hours Per Day (ICD-10-PCS; 2019-05-24)
PROC: 5A1D70Z Performance of Urinary Filtration, Intermittent, Less than 6 Hours Per Day (ICD-10-PCS; 2019-05-26)
DX: G92 Toxic encephalopathy (principal); I67.4 Hypertensive encephalopathy; E11.22 Type 2 diabetes mellitus with diabetic chronic kidney disease; E44.0 Moderate protein-calorie malnutrition; E87.5 Hyperkalemia; I12.0 Hypertensive chronic kidney disease with stage 5 chronic kidney disease or end stage renal disease; N18.6 End stage renal disease; I25.10 Atherosclerotic heart disease of native coronary artery without angina pectoris; E03.9 Hypothyroidism, unspecified; H54.8 Legal blindness, as defined in USA; E78.5 Hyperlipidemia, unspecified; Z99.2 Dependence on renal dialysis; I69.354 Hemiplegia and hemiparesis following cerebral infarction affecting left non-dominant side; F15.10 Other stimulant abuse, uncomplicated; Z20.828 Contact with and (suspected) exposure to other viral communicable diseases; T42.8X5A Adverse effect of antiparkinsonism drugs and other central muscle-tone depressants, initial encounter; F12.10 Cannabis abuse, uncomplicated; I25.2 Old myocardial infarction; Z95.5 Presence of coronary angioplasty implant and graft; Z87.891 Personal history of nicotine dependence; D63.8 Anemia in other chronic diseases classified elsewhere; Z68.25 Body mass index [BMI] 25.0-25.9, adult; Y92.89 Other specified places as the place of occurrence of the external cause
CPT/HCPCS: 82962; 87804; G0378; G0480; J0360; J2310; J7030; Q0092